=== PATIENT | male | born 1940 | race Asian ===

== ENCOUNTER 2017-08-26 21:55 | Inpatient (IN) | payer OTHER, MEDICAID, MEDICARE ==
[~2017-08-26] VITALS: Ht 160 cm; Wt 62.6 kg
[~2017-08-26 21:55] MED LIST: ASPI81 PO; CADU10TA2 PO
[2017-08-26 21:58] VITALS: BP 191/88; PULSE 135; RESP 20; TEMP 98.3; O2SAT 97
[2017-08-27] VITALS (7 sets, daily range): BP systolic 114–146; BP diastolic 62–73; PULSE 64–86; RESP 17–21; TEMP 97.9–98.2; O2SAT 97–100
[2017-08-27 00:37] LABS: AUTOMATED NEUTROPHIL # 10.7 TH/MM3 (1.8-7.7); BASOPHIL % 0.3 % (0.0-2.0); EOSINOPHIL % 0.1 % (0.0-4.0); HEMATOCRIT 35.8 % (39.0-51.0); HEMO FLAGS DIFF FINAL; LYMPH % 8.8 % (9.0-44.0); LYMPHOCYTE # 1.1 TH/MM3 (1.0-4.8); MEAN CORPUSCULAR HEMOGLOBIN 27.6 PG (27.0-34.0); MEAN CORPUSCULAR HGB CONC 32.5 % (32.0-36.0); MONO % 5.2 % (0.0-8.0); NEUT % 85.6 % (16.0-70.0); PLATELET COUNT 201 TH/MM3 (150-450); RED BLOOD COUNT 4.21 MIL/MM3 (4.50-5.90); RED CELL DISTRIBUTION WIDTH 14.2 % (11.6-17.2); WHITE BLOOD COUNT 12.5 TH/MM3 (4.0-11.0)
[2017-08-27 00:48] LABS: APTT (PATIENT) 26.2 SEC (24.3-30.1); PROTHROMBIN TIME - PATIENT 10.5 SEC (9.8-11.6)
[2017-08-27 01:00] LABS: ALT (GPT) 22 U/L (12-78); ANION GAP 9 MEQ/L (5-15); AST (GOT) 26 U/L (15-37); BLOOD UREA NITROGEN 34 MG/DL (7-18); CHLORIDE 100 MEQ/L (98-107); GLOMERULAR FILTRATION RATE 35 ML/MIN (>89); POTASSIUM 4.2 MEQ/L (3.5-5.1); SODIUM (NA) 131 MEQ/L (136-145)
[2017-08-27] MEDS ORDERED: LIDOCAINE 2% JELLY 30 ML TUBE TOPICAL ONE (01:00)
[2017-08-27 01:03] LABS: ALKALINE PHOSPHATASE 100 U/L (45-117); TOTAL BILIRUBIN ADULT 0.6 MG/DL (0.2-1.0)
[2017-08-27 01:39] LABS: BLOOD, URINE LARGE (NEG); COMMENT (UR) CULTURE INDICATED; CULTURE IF INDICATED CULTURE INDICATED; GLUCOSE,URINE TRACE mg/dL (NEG); KETONE, URINE 10 mg/dL (NEG); NITRITE,URINE POS (NEG); PH, URINE 7.5 (5.0-8.5); URINE COLOR DARK-RED (YELLW/STRAW)
--- NOTE | 2017-08-27 02:04 | PD ---
HPI Chief Complaint: Abdominal Pain Time Seen by Provider: 00:42 Travel History International Travel<30 days: No Contact w/Intl Traveler<30days: No Traveled to known affect area: No History of Present Illness HPI 77-year-old male complains of low abdominal discomfort and hematuria. Patient has history of prostate cancer for the past 6 months and has been seen by Dr. Shields, urologist. Patient has been receiving hormone injection. Patient started having cramping pain on the lower abdomen and hematuria since this morning. Patient states the pain and mild cramping pain localized to lower abdomen. Patient denies any pain radiation. Patient denies any fever chills. Patient denies any back pain. PFSH Past Medical History Cancer: No Cardiovascular Problems: Yes High Cholesterol: Yes Diabetes: No Endocrine: No Glaucoma: No Genitourinary: No Hepatitis: No Hiatal Hernia: No Hypertension: Yes Immune Disorder: No Musculoskeletal: No Neurologic: No Psychiatric: No Reproductive: No Respiratory: No Thyroid Disease: No Past Surgical History Pacemaker: No Social History Alcohol Use: No Tobacco Use: No Allergies-Medications (Allergen,Severity, Reaction): Coded Allergies: No Known Allergies (Verified , 08/26/17) Reported Meds & Prescriptions Reported Meds & Active Scripts Active Reported Aspirin 81 Mg Tab 81 Mg PO DAILY [place] 10/20 (Amlodipine/Atorvastatin) 10 Mg/20 Mg Tab 1 Tab PO DAILY Review of Systems General / Constitutional: No: Fever Eyes: No: Visual changes HENT: No: Headaches Cardiovascular: No: Chest Pain or Discomfort Respiratory: No: Shortness of Breath Gastrointestinal: Positive: Abdominal Pain Genitourinary: Positive: Hematuria, No: Dysuria Musculoskeletal: No: Pain Skin: No Rash Neurologic: No: Weakness Psychiatric: No: Depression Endocrine: No: Polydipsia Hematologic/Lymphatic: No: Easy Bruising Physical Exam Narrative GENERAL: Well-nourished, well-developed patient. SKIN: Focused skin assessment warm/dry. HEAD: Normocephalic. EYES: No scleral icterus. No injection or drainage. NECK: Supple, trachea midline. No JVD or lymphadenopathy. CARDIOVASCULAR: Regular rate and rhythm without murmurs, gallops, or rubs. RESPIRATORY: Breath sounds equal bilaterally. No accessory muscle use. GASTROINTESTINAL: Abdomen soft. Patient has mild distention lower abdomen. The bladder is distended to the umbilicus level. Mild tenderness on palpation lower abdomen. No rebound tenderness. MUSCULOSKELETAL: No cyanosis, or edema. BACK: Nontender without obvious deformity. No CVA tenderness. exam: Patient has small amount of blood per meatus. No tenderness on palpation of the testicle. Data Data Last Documented VS Vital Signs Date Time Temp Pulse Resp B/P (MAP) Pulse Ox O2 Delivery O2 Flow Rate FiO2 08/27/17 03:40 80 17 120/63 (82) 100 Room Air 08/26/17 21:58 98.3 Orders Orders Basic Metabolic Panel (Bmp) (08/27/17 00:10) Complete Blood Count With Diff (08/27/17 00:10) Comprehensive Metabolic Panel (08/27/17 00:10) Lipase (08/27/17 00:10) Lactic Acid (08/27/17 00:10) Prothrombin Time / Inr (Pt) (08/27/17 00:10) Act Partial Throm Time (Ptt) (08/27/17 00:10) Urinalysis - C+S If Indicated (08/27/17 00:10) Iv Access Insert/Monitor (08/27/17 00:10) Ecg Monitoring (08/27/17 00:10) Oximetry (08/27/17 00:10) Urinary Catheter Insert/Apply (08/27/17 00:51) Lidocaine 2% Jelly (Xylocaine 2% Jelly) (08/27/17 01:00) Type And Screen (08/27/17 01:15) Ct Abd/Pel W Iv Contrast(Rout) (08/27/17 01:15) Urine Culture (08/27/17 01:08) Iodixanol 320 Inj (Rad Ct) (Visipaque 32 (08/27/17 02:18) Labs Laboratory Tests Test 08/27/17 00:24 08/27/17 01:08 White Blood Count 12.5 TH/MM3 Red Blood Count 4.21 MIL/MM3 Hemoglobin 11.6 GM/DL Hematocrit 35.8 % Mean Corpuscular Volume 85.0 FL Mean Corpuscular Hemoglobin 27.6 PG Mean Corpuscular Hemoglobin Concent 32.5 % Red Cell Distribution Width 14.2 % Platelet Count 201 TH/MM3 Mean Platelet Volume 7.0 FL Neutrophils (%) (Auto) 85.6 % Lymphocytes (%) (Auto) 8.8 % Monocytes (%) (Auto) 5.2 % Eosinophils (%) (Auto) 0.1 % Basophils (%) (Auto) 0.3 % Neutrophils # (Auto) 10.7 TH/MM3 Lymphocytes # (Auto) 1.1 TH/MM3 Monocytes # (Auto) 0.6 TH/MM3 Eosinophils # (Auto) 0.0 TH/MM3 Basophils # (Auto) 0.0 TH/MM3 CBC Comment DIFF FINAL Differential Comment Prothrombin Time 10.5 SEC Prothromb Time International Ratio 1.0 RATIO Activated Partial Thromboplast Time 26.2 SEC Blood Urea Nitrogen 34 MG/DL Creatinine 1.88 MG/DL Random Glucose 180 MG/DL Total Protein 7.9 GM/DL Albumin 4.1 GM/DL Calcium Level 9.1 MG/DL Alkaline Phosphatase 100 U/L Aspartate Amino Transf (AST/SGOT) 26 U/L Alanine Aminotransferase (ALT/SGPT) 22 U/L Total Bilirubin 0.6 MG/DL Sodium Level 131 MEQ/L Potassium Level 4.2 MEQ/L Chloride Level 100 MEQ/L Carbon Dioxide Level 22.0 MEQ/L Anion Gap 9 MEQ/L Estimat Glomerular Filtration Rate 35 ML/MIN Lactic Acid Level 1.7 mmol/L Lipase 263 U/L Urine Color DARK-RED Urine Turbidity CLOUDY Urine pH 7.5 Urine Specific [place] 1.030 Urine Protein 300 mg/dL Urine Glucose (UA) TRACE mg/dL Urine Ketones 10 mg/dL Urine Occult Blood LARGE Urine Nitrite POS Urine Bilirubin NEG Urine Urobilinogen 8.0 MG/DL Urine Leukocyte Esterase TRACE Urine RBC /hpf Urine WBC /hpf Microscopic Urinalysis Comment CULTURE INDICATED MDM Medical Decision Making Medical Screen Exam Complete: Yes Emergency Medical Condition: Yes Interpretation(s) Last Impressions Abdomen/Pelvis CT 08/27/17 0115 Signed Impressions: Service Date/Time: August 01:56 - CONCLUSION: Bladder filled with likely hematoma. Nonspecific soft tissue nodules in the retroperitoneum Incompletely seen sclerotic process involving the proximal right femoral shaft. Previously treated aortoiliac aneurysm. Tyrone Ni MD 3:41 AM. CBC WBC 12.5. Hemoglobin 11.6 hematocrit 35.8. 85 neutrophil. Sodium 131. BUN 34. Creatinine 1.88. UA gross blood. Differential Diagnosis Differential diagnosis including hematuria, UTI. Narrative Course 77-year-old male with lower abdominal discomfort and hematuria. History of prostate cancer on hormone therapy. Banks catheter inserted. Diagnosis Primary Impression: Gross hematuria Additional Impression: History of prostate cancer Admitting Information Admitting Physician Requests: Observation Owen Nevarez MD Aug 27, 2017 02:04
[2017-08-27] MEDS ORDERED: IODIXANOL 320 MG/ML 10 ML VIAL (for Rad CT) IVCONTRAST ONE (02:18)
--- NOTE | 2017-08-27 02:36 | RADRPT ---
EXAM DATE/TIME: 08/27/2017 01:56 [facility] COMPARISON: No previous studies available for comparison. INDICATIONS : Lower abdominal pain and hematuria. IV CONTRAST: 50 cc Visipaque (iodixanol) IV ORAL CONTRAST: No oral contrast ingested. RADIATION DOSE: 4.72 CTDIvol (mGy) MEDICAL HISTORY : Hypertension. Aneurysm, abdominal. Carcinoma, prostate. SURGICAL HISTORY : Abdominal aortic aneurysm repair. ENCOUNTER: Initial ACUITY: 1 day PAIN SCALE: 5/10 LOCATION: Bilateral lower quadrant TECHNIQUE: Volumetric scanning of the abdomen and pelvis was performed. Using automated exposure control and ad justment of the mA and/or kV according to patient size, radiation dose was kept as low as reasonably achievable to obtain optimal diagnostic quality images. DICOM format image data is available electro nically for review and comparison. FINDINGS: LOWER LUNGS: The visualized lower lungs are clear. LIVER: Homogeneous density without lesion. There is no dilation of the biliary tree. No calcified gall[place] es. SPLEEN: Normal size without lesion. PANCREAS: Within normal limits. KIDNEYS: Bilateral renal cysts. No evidence of stone or hydronephrosis. ADRENAL GLANDS: Within normal limits. VASCULAR: Previous endovascular aortoiliac aneurysm repair. Coil embolization of the right hypogastric with ext ension of the endograft into the proximal right external iliac artery. Aortic aneurysm sac diameter m easures 4.3 cm. 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 BOWEL/MESENTERY: Moderate size hiatal hernia. No abnormal dilatation of bowel. No definite focal inflammatory changes. ABDOMINAL WALL: Within normal limits. RETROPERITONEUM: Soft tissue density nodules in the retroperitoneum, most conspicuously adjacent to the right kidney m easuring roughly a centimeter in size. BLADDER: Banks catheter present. Bladder contents are hyperdense, likely representing hematoma. REPRODUCTIVE: Within normal limits. INGUINAL: There is no lymphadenopathy or hernia. MUSCULOSKELETAL: Incompletely seen sclerotic process involving the proximal aspect of the right femoral shaft. CONCLUSION: Bladder filled with likely hematoma. Nonspecific soft tissue nodules in the retroperitoneum Incompletely seen sclerotic process involving the proximal right femoral shaft. Previously treated aortoiliac aneurysm. Tyrone Ni MD on August 27, 2017 at 2:26 Board Certified Radiologist. This report was verified electronically.
[2017-08-27] MEDS ORDERED: NALOXONE HCL 0.4 MG/ML AMP IV PUSH PRN ×2 (04:00→10:30)
[2017-08-27] MEDS ORDERED: SODIUM CHLORIDE 0.9% FLUSH 10 ML FLUSH IV FLUSH PRN (04:00)
--- NOTE | 2017-08-27 05:18 | HHI.HP ---
[facility] [place] [facility] Cristy Carlisle MD Admission Diagnosis gross hematuria. History of prostate cancer. Diagnoses: Chief Complaint: blood in urine Travel History International Travel<30 Days: No Contact w/Intl Traveler <30 Da: No Traveled to Known Affected Are: No History of Present Illness Written by Leann Callahan, acting as scribe for [George] on 08/27/17 at 05:14. 77 y/o male with a history of HTN, prostate cancer presented to the ED with complaints of blood in the urine. He states the blood in his urine started yesterday morning with associated pain in his bladder. He describes the pain in his bladder as pressure-like. He denies any chest pain, shortness of breath , fever or chills. Banks was inserted and is draining bright red blood with clots. Urologist: Dr. Shields Review of Systems Except as stated in HPI: all other systems reviewed are Neg Past Family Social History Past Medical History HTN Prostate cancer, with Lupron injections once a month Past Surgical History AAA repair 2009 Reported Medications Reported Meds & Active Scripts Active Allergies: Coded Allergies: No Known Allergies (Verified , 08/26/17) Active Ordered Medications Current Medications Medications (Trade) Dose Ordered Sig/Anton Route Start Time Stop Time Status Last Admin Sodium Chloride 1,000 ml @ 100 mls/hr Q10H IV 08/27/17 03:47 (NS Flush) 2 ml UNSCH PRN IV FLUSH 08/27/17 04:00 (NS Flush) 2 ml BID IV FLUSH 08/27/17 09:00 (Narcan Inj) 0.4 mg UNSCH PRN IV PUSH 08/27/17 04:00 Ciprofloxacin/ Dextrose 200 ml @ 200 mls/hr Q12H IV 08/27/17 05:00 Family History Mom: HTN Dad: HTN Social History Tobacco use: Denies Alcohol use: Denies Physical Exam Vital Signs Vital Signs Date Time Temp Pulse Resp B/P (MAP) Pulse Ox O2 Delivery O2 Flow Rate FiO2 08/27/17 05:06 98.2 83 17 146/73 (97) 98 08/27/17 03:40 80 17 120/63 (82) 100 Room Air 08/27/17 01:30 86 17 114/67 (83) 97 Room Air 08/26/17 21:58 98.3 135 20 191/88 (122) 97 Room Air Physical Exam GENERAL: This is a well-nourished, well-developed patient, in no apparent distress. SKIN: No rashes, ecchymoses or lesions. Cool and dry. HEAD: Atraumatic. Normocephalic. EYES: Pupils equal round and reactive. ENT: Nose without bleeding, purulent drainage or septal hematoma. Airway patent. NECK: Trachea midline. No JVD CARDIOVASCULAR: Regular rate and rhythm without murmurs, gallops, or rubs. RESPIRATORY: Clear to auscultation. Breath sounds equal bilaterally. No wheezes , rales, or rhonchi. GASTROINTESTINAL: Abdomen soft, non-tender, nondistended. Bladder tenderness MUSCULOSKELETAL: Extremities without clubbing, cyanosis, or edema. No joint tenderness, effusion, or edema noted. No calf tenderness. NEUROLOGICAL: Awake and alert. Motor and sensory grossly within normal limits. Normal speech. Laboratory Laboratory Tests Test 08/27/17 00:24 08/27/17 01:08 White Blood Count 12.5 Red Blood Count 4.21 Hemoglobin 11.6 Hematocrit 35.8 Mean Corpuscular Volume 85.0 Mean Corpuscular Hemoglobin 27.6 Mean Corpuscular Hemoglobin Concent 32.5 Red Cell Distribution Width 14.2 Platelet Count 201 Mean Platelet Volume 7.0 Neutrophils (%) (Auto) 85.6 Lymphocytes (%) (Auto) 8.8 Monocytes (%) (Auto) 5.2 Eosinophils (%) (Auto) 0.1 Basophils (%) (Auto) 0.3 Neutrophils # (Auto) 10.7 Lymphocytes # (Auto) 1.1 Monocytes # (Auto) 0.6 Eosinophils # (Auto) 0.0 Basophils # (Auto) 0.0 CBC Comment DIFF FINAL Differential Comment Prothrombin Time 10.5 Prothromb Time International Ratio 1.0 Activated Partial Thromboplast Time 26.2 Blood Urea Nitrogen 34 Creatinine 1.88 Random Glucose 180 Total Protein 7.9 Albumin 4.1 Calcium Level 9.1 Alkaline Phosphatase 100 Aspartate Amino Transf (AST/SGOT) 26 Alanine Aminotransferase (ALT/SGPT) 22 Total Bilirubin 0.6 Sodium Level 131 Potassium Level 4.2 Chloride Level 100 Carbon Dioxide Level 22.0 Anion Gap 9 Estimat Glomerular Filtration Rate 35 Lactic Acid Level 1.7 Lipase 263 Urine Color DARK-RED Urine Turbidity CLOUDY Urine pH 7.5 Urine Specific [place] 1.030 Urine Protein 300 Urine Glucose (UA) TRACE Urine Ketones 10 Urine Occult Blood LARGE Urine Nitrite POS Urine Bilirubin NEG Urine Urobilinogen 8.0 Urine Leukocyte Esterase TRACE Urine RBC Urine WBC Microscopic Urinalysis Comment CULTURE INDICATED Date/Time Source Procedure Growth Status 08/27/17 01:08 Urine Random Urine Urine Culture Pending Received Result Diagram: 08/27/17 0024 08/27/17 0024 Imaging Last Impressions Abdomen/Pelvis CT 08/27/17 0115 Signed Impressions: Service Date/Time: August 01:56 - CONCLUSION: Bladder filled with likely hematoma. Nonspecific soft tissue nodules in the retroperitoneum Incompletely seen sclerotic process involving the proximal right femoral shaft. Previously treated aortoiliac aneurysm. Tyrone Ni MD Course Caprini VTE Risk Assessment Caprini VTE Risk Assessment: Mod/High Risk (score >= 2) VTE Pharm Contraindication: Active bleeding Caprini Risk Assessment Model Point Value = 1 Point Value = 2 Point Value = 3 Point Value = 5 Age 41-60 Minor surgery BMI > 25 kg/m2 Swollen legs Varicose veins or History of unexplained or recurrent spontaneous Oral contraceptives or hormone replacement Sepsis (< 1 month) Serious lung disease, including pneumonia (< 1 month) Abnormal pulmonary function Acute myocardial infarction Congestive heart failure (< 1 month) History of inflammatory bowel disease Medical patient at bed rest Age 61-74 Arthroscopic surgery Major open surgery (> 45 min) Laparoscopic surgery (> 45 min) Malignancy Confined to bed (> 72 hours) Immobilizing plaster cast Central venous access Age >= 75 History of VTE Family history of VTE Factor V Leiden Prothrombin [id number] Lupus anticoagulant Anticardiolipin antibodies Elevated serum homocysteine Heparin-induced thrombocytopenia Other congenital or acquired thrombophilia Stroke (< 1 month) Elective arthroplasty Hip, pelvis, or leg fracture Acute spinal cord injury (< 1 month) Prophylaxis Regimen Total Risk Factor Score Risk Level Prophylaxis Regimen 0-1 Low Early ambulation 2 Moderate Order ONE of the following: *Sequential Compression Device (SCD) *Heparin 5000 units SQ BID 3-4 Higher Order ONE of the following medications: *Heparin 5000 units SQ TID *Enoxaparin/Lovenox 40 mg SQ daily (WT < 150 kg, CrCl > 30 mL/min) *Enoxaparin/Lovenox 30 mg SQ daily (WT < 150 kg, CrCl > 10-29 mL/min) *Enoxaparin/Lovenox 30 mg SQ BID (WT < 150 kg, CrCl > 30 mL/min) AND/OR *Sequential Compression Device (SCD) 5 or more Highest Order ONE of the following medications: *Heparin 5000 units SQ TID (Preferred with Epidurals) *Enoxaparin/Lovenox 40 mg SQ daily (WT < 150 kg, CrCl > 30 mL/min) *Enoxaparin/Lovenox 30 mg SQ daily (WT < 150 kg, CrCl > 10-29 mL/min) *Enoxaparin/Lovenox 30 mg SQ BID (WT < 150 kg, CrCl > 30 mL/min) AND *Sequential Compression Device (SCD) Assessment and Plan Problem List: (1) Gross hematuria ICD Code: R31.0 - Gross hematuria Status: Acute (2) History of prostate cancer ICD Code: Z85.46 - Personal history of malignant neoplasm of prostate Status: Acute Assessment and Plan 77 y/o male with a history of HTN, prostate cancer presented to the ED with complaints of blood in the urine. Gross hematuria, with UTI and leukocytosis UA shows trace leukocyte esterase with positive nitrates and large amount of blood WBCs 12.[address] reviewed and shows bladder filled with likely a hematoma -Continue Banks catheter, flush as needed for clots -Consult urology -Ciprofloxacin IV -Urine culture pending Hypertension, chronic -We'll order home medications when verified by RN DVT prophylaxis: SCDs, chemical discipline Discussed Condition With Patient and RN Physician Certification 2 Midnight Certification Type: Admission for Inpatient Services Order for Inpatient Services The services are ordered in accordance with Medicare regulations or non- Medicare payer requirements, as applicable. In the case of services not specified as inpatient-only, they are appropriately provided as inpatient services in accordance with the 2-midnight benchmark. Estimated LOS (days): 2 days is the estimated time the patient will need to remain in the hospital, assuming treatment plan goals are met and no additional complications. Post-Hospital Plan: Home Leann Callahan Aug 27, 2017 05:18
[2017-08-27] MEDS: CIPROFLOXACIN 400 MG PREMIX 200 ML IV SCH (08:47)
[2017-08-27] MEDS: SODIUM CHLORIDE 0.9% FLUSH 10 ML FLUSH IV FLUSH SCH ×2 (08:47→20:32)
[2017-08-27] MEDS: SODIUM CHLOR 0.9% 1000 ML INJ 1,000 ML IV SCH ×2 (08:47→20:31)
[2017-08-27] MEDS ORDERED: ACETAMINOPHEN/HYDROcodone 325 MG/5 MG TAB PO PRN (10:30)
[2017-08-27] MEDS ORDERED: ACETAMINOPHEN/HYDROcodone 325 MG/7.5 MG TAB PO PRN (10:30)
[2017-08-27] MEDS ORDERED: ACETAMINOPHEN 325 MG TAB PO PRN (10:30)
--- NOTE | 2017-08-27 18:17 | PD.CONS ---
HPI Service Urology Consult Requested By Reason for Consult Hematuria Primary Care Physician Cristy Carlisle MD Diagnosis: (1) Gross hematuria ICD Code: R31.0 - Gross hematuria (2) History of prostate cancer ICD Code: Z85.46 - Personal history of malignant neoplasm of prostate History of Present Illness 77yo male with history of metastatic prostate cancer followed by Dr. Shields currently undergoing hormone therapy for the prostate cancer now seen in consultation for gross hematuria and retention. Patient reports that he began to have gross hematuria yesterday. This progressively worsened and was not able to void last night, at which point he presented to the ED. A catheter has been placed and irrigated with significant clots removed. Patient underwent CT scan which identified likely large bladder clot within the lumen of the bladder. Currently his henriquez catheter is draining adequately. No pain at this time. No fevers. Review of Systems ROS Limitations: Clinical Condition Constitutional: DENIES: Fever Endocrine: DENIES: Heat/cold intolerance Eyes: DENIES: Blurred vision Ears, nose, mouth, throat: DENIES: Hearing loss Respiratory: DENIES: Cough Cardiovascular: DENIES: Chest pain Gastrointestinal: COMPLAINS OF: Abdominal pain Genitourinary: COMPLAINS OF: Hematuria Musculoskeletal: COMPLAINS OF: Joint pain Integumentary: DENIES: Rash Hematologic/lymphatic: DENIES: Bruising Neurologic: DENIES: Abnormal gait, Headache Psychiatric: DENIES: Anxiety Except as stated in HPI: all other systems reviewed are Neg Past Family Social History Past Medical History HTN Prostate cancer, with Lupron injections once a month Past Surgical History AAA repair 2009 Reported Medications Reported Meds & Active Scripts Active Allergies: Coded Allergies: No Known Allergies (Verified , 08/26/17) Active Ordered Medications Current Medications Medications (Trade) Dose Ordered Sig/Anton Route Start Time Stop Time Status Last Admin Sodium Chloride 1,000 ml @ 100 mls/hr Q10H IV 08/27/17 03:47 08/27/17 08:47 (NS Flush) 2 ml UNSCH PRN IV FLUSH 08/27/17 04:00 (NS Flush) 2 ml BID IV FLUSH 08/27/17 09:00 (Narcan Inj) 0.4 mg UNSCH PRN IV PUSH 08/27/17 04:00 Ciprofloxacin/ Dextrose 200 ml @ 200 mls/hr Q12H IV 08/27/17 05:00 08/27/17 08:47 (Pneumovax-23 Inj) 25 mcg ONCE ONCE IM 08/28/17 10:00 08/28/17 10:01 (Flu (Quadrivalent) Vaccine Inj) 0.5 ml ONCE ONCE IM 08/28/17 10:00 08/28/17 10:01 (Tylenol) 650 mg Q6H PRN PO 08/27/17 10:30 ([place] 5-325 Mg) 1 tab Q4H PRN PO 08/27/17 10:30 ([place] 7.5-325 Mg) 1 tab Q4H PRN PO 08/27/17 10:30 08/27/17 12:05 Family History Mom: HTN Dad: HTN Social History Tobacco use: Denies Alcohol use: Denies Physical Exam Vital Signs Date Time Temp Pulse Resp B/P (MAP) Pulse Ox O2 Delivery O2 Flow Rate FiO2 08/27/17 15:54 97.9 64 20 129/65 (86) 98 08/27/17 13:14 20 08/27/17 11:40 98.0 71 21 118/62 (80) 98 08/27/17 07:21 98.0 74 20 120/65 (83) 98 08/27/17 05:06 98.2 83 17 146/73 (97) 98 08/27/17 03:40 80 17 120/63 (82) 100 Room Air 08/27/17 01:30 86 17 114/67 (83) 97 Room Air 08/26/17 21:58 98.3 135 20 191/88 (122) 97 Room Air Physical Exam GENERAL: This is a well-nourished, well-developed patient, in no apparent distress. SKIN: No rashes, ecchymoses or lesions. Cool and dry. HEAD: Atraumatic. Normocephalic. EYES: Extraocular motions intact. No scleral icterus. No injection or drainage. ENT: Nose without bleeding, purulent drainage. Airway patent. NECK: Trachea midline. No JVD or lymphadenopathy. CARDIOVASCULAR: Normal pulses RESPIRATORY: Nonlabored, equal chest rise GASTROINTESTINAL: Abdomen soft, non-tender, nondistended GENITOURINARY: 20Fr henriquez in place, light red urine with CBI running MUSCULOSKELETAL: Extremities without clubbing, cyanosis, or edema.. NEUROLOGICAL: Awake and alert. Motor and sensory grossly within normal limits. Normal speech. Lab results reviewed: Yes Laboratory Tests Test 08/27/17 00:24 08/27/17 01:08 White Blood Count 12.5 Red Blood Count 4.21 Hemoglobin 11.6 Hematocrit 35.8 Mean Corpuscular Volume 85.0 Mean Corpuscular Hemoglobin 27.6 Mean Corpuscular Hemoglobin Concent 32.5 Red Cell Distribution Width 14.2 Platelet Count 201 Mean Platelet Volume 7.0 Neutrophils (%) (Auto) 85.6 Lymphocytes (%) (Auto) 8.8 Monocytes (%) (Auto) 5.2 Eosinophils (%) (Auto) 0.1 Basophils (%) (Auto) 0.3 Neutrophils # (Auto) 10.7 Lymphocytes # (Auto) 1.1 Monocytes # (Auto) 0.6 Eosinophils # (Auto) 0.0 Basophils # (Auto) 0.0 CBC Comment DIFF FINAL Differential Comment Prothrombin Time 10.5 Prothromb Time International Ratio 1.0 Activated Partial Thromboplast Time 26.2 Blood Urea Nitrogen 34 Creatinine 1.88 Random Glucose 180 Total Protein 7.9 Albumin 4.1 Calcium Level 9.1 Alkaline Phosphatase 100 Aspartate Amino Transf (AST/SGOT) 26 Alanine Aminotransferase (ALT/SGPT) 22 Total Bilirubin 0.6 Sodium Level 131 Potassium Level 4.2 Chloride Level 100 Carbon Dioxide Level 22.0 Anion Gap 9 Estimat Glomerular Filtration Rate 35 Lactic Acid Level 1.7 Lipase 263 Urine Color DARK-RED Urine Turbidity CLOUDY Urine pH 7.5 Urine Specific [place] 1.030 Urine Protein 300 Urine Glucose (UA) TRACE Urine Ketones 10 Urine Occult Blood LARGE Urine Nitrite POS Urine Bilirubin NEG Urine Urobilinogen 8.0 Urine Leukocyte Esterase TRACE Urine RBC Urine WBC Microscopic Urinalysis Comment CULTURE INDICATED Date/Time Source Procedure Growth Status 08/27/17 01:08 Urine Random Urine Urine Culture Pending Received Result Diagram: 08/27/17 0024 08/27/17 0024 Personally reviewed images: Yes Imaging Last Impressions Abdomen/Pelvis CT 08/27/17 0115 Signed Impressions: Service Date/Time: August 01:56 - CONCLUSION: Bladder filled with likely hematoma. Nonspecific soft tissue nodules in the retroperitoneum Incompletely seen sclerotic process involving the proximal right femoral shaft. Previously treated aortoiliac aneurysm. Tyrone Ni MD Assessment and Plan Problem List: (1) History of prostate cancer ICD Code: Z85.46 - Personal history of malignant neoplasm of prostate Status: Acute (2) Gross hematuria ICD Code: R31.0 - Gross hematuria Status: Acute Assessment and Plan -Difficulty in irrigating 20Fr 3way catheter -Henriquez catheter changed at bedside to 24Fr -Hand irrigation with 2L of normal saline. Significant clot burden removed from bladder, however urine remained light pink/red -Review of CT scan shows large bladder clot encompassing majority of bladder -Patient would benefit from cystoscopy with clot evacuation -Currently patient is comfortable, draining well with CBI, light pink -Plan for OR tomorrow with Cystoscopy, clot evacuation and fulguration of bleeders -NPO at midnight Oli Rod MD Aug 27, 2017 18:17
[2017-08-28] VITALS: BP 138/72; PULSE 68; RESP 17; TEMP 97.2; O2SAT 97
[2017-08-28] MEDS ORDERED: POVIDONE IODINE 5% (ANTISEPSIS KIT) 4 APPLICATIONS EACH NARE PRN (03:45)
[2017-08-28] MEDS ORDERED: CHLORHEXIDINE GLUCONATE 2 % 1 PACK (2 CLOTHS) TOPICAL PRN (03:45)
[2017-08-28] MEDS ORDERED: METOPROLOL TARTRATE 25 MG TAB PO PRN (03:45)
[2017-08-28] MEDS ORDERED: LACTATED RINGER'S 1000 ML IV PRN (03:45)
[2017-08-28 04:00] VITALS: BP 134/63; PULSE 68; RESP 17; TEMP 99.3; O2SAT 97
[2017-08-28] MEDS: CIPROFLOXACIN 400 MG PREMIX 200 ML IV SCH ×2 (04:17→18:21)
[2017-08-28] MEDS: SODIUM CHLOR 0.9% 1000 ML INJ 1,000 ML IV SCH ×2 (06:54→18:31)
[2017-08-28] MEDS: SODIUM CHLORIDE 0.9% FLUSH 10 ML FLUSH IV FLUSH SCH ×2 (06:54→21:00)
[2017-08-28 07:44] LABS: AUTOMATED NEUTROPHIL # 5.9 TH/MM3 (1.8-7.7); BASOPHIL % 0.4 % (0.0-2.0); EOSINOPHIL # 0.1 TH/MM3 (0-0.4); EOSINOPHIL % 1.7 % (0.0-4.0); HEMATOCRIT 27.2 % (39.0-51.0); HEMO FLAGS DIFF FINAL; LYMPH % 13.1 % (9.0-44.0); MEAN CORPUSCULAR HEMOGLOBIN 28.4 PG (27.0-34.0); MEAN CORPUSCULAR HGB CONC 33.4 % (32.0-36.0); MONO % 10.4 % (0.0-8.0); NEUT % 74.4 % (16.0-70.0); PLATELET COUNT 143 TH/MM3 (150-450); RED CELL DISTRIBUTION WIDTH 14.2 % (11.6-17.2)
[2017-08-28 08:46] LABS: BICARBONATE 25.2 MEQ/L (21.0-32.0); POTASSIUM 3.8 MEQ/L (3.5-5.1)
--- NOTE | 2017-08-28 08:56 | EKG ---
Date Performed: 08/28/2017 Time Performed: 05:42:52 PTAGE: 77 years EKG: Sinus rhythm with occasional PAC Right bundle branch block Possible inferior infarct - age undetermined Abnormal ECG PREVIOUS TRACING : 12/18/2010 11.15 No significant change from previous tracing noted. DOCTOR: Paramjit Martinez Interpretating Date/Time 08/28/2017 08:55:13
--- NOTE | 2017-08-28 08:56 | HHI.PR ---
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 Successful irrigation and removal of all clots Resection of tumor completed Continue CBI Will follow Objective Vital Signs Vital Signs Date Time Temp Pulse Resp B/P (MAP) Pulse Ox O2 Delivery O2 Flow Rate FiO2 08/28/17 04:00 99.3 68 17 134/63 (86) 97 08/28/17 00:00 97.2 68 17 138/72 (94) 97 08/27/17 20:00 70 08/27/17 15:54 97.9 64 20 129/65 (86) 98 08/27/17 13:14 20 08/27/17 11:40 98.0 71 21 118/62 (80) 98 Intake & Output 08/28/17 08/28/17 07:00 19:00 Intake Total 200 ml Output Total 1475 ml Balance -1275 ml Intake Oral 0 ml IV Total 200 ml Output Urine Total 1475 ml Result Diagram: 08/28/1762208/28/17 0623 Medications and IVs Current Medications Medications (Trade) Dose Ordered Sig/Anton Route Start Time Stop Time Status Last Admin Sodium Chloride 1,000 ml @ 100 mls/hr Q10H IV 08/27/17 03:47 08/27/17 20:31 (NS Flush) 2 ml UNSCH PRN IV FLUSH 08/27/17 04:00 (NS Flush) 2 ml BID IV FLUSH 08/27/17 09:00 08/27/17 20:32 (Narcan Inj) 0.4 mg UNSCH PRN IV PUSH 08/27/17 04:00 Ciprofloxacin/ Dextrose 200 ml @ 200 mls/hr Q12H IV 08/27/17 05:00 08/28/17 04:17 (Pneumovax-23 Inj) 25 mcg ONCE ONCE IM 08/28/17 10:00 08/28/17 10:01 (Flu (Quadrivalent) Vaccine Inj) 0.5 ml ONCE ONCE IM 08/28/17 10:00 08/28/17 10:01 (Tylenol) 650 mg Q6H PRN PO 08/27/17 10:30 ([place] 5-325 Mg) 1 tab Q4H PRN PO 08/27/17 10:30 ([place] 7.5-325 Mg) 1 tab Q4H PRN PO 08/27/17 10:30 08/27/17 12:05 Lactated Ringer's 1,000 ml @ 30 mls/hr Q24H PRN IV 08/28/17 03:45 08/31/17 03:44 (Betadine 5% Antisepsis Kit) 1 applic INSTRUMENT REPAIR SUPERVISOR PRN EACH NARE 08/28/17 03:45 08/31/17 03:44 (Chlorhexidine 2% Cloth) 3 pack INSTRUMENT REPAIR SUPERVISOR PRN TOPICAL 08/28/17 03:45 08/31/17 03:44 (Lopressor) 25 mg INSTRUMENT REPAIR SUPERVISOR PRN PO 08/28/17 03:45 08/31/17 03:44 Assessment and Plan Problem List: (1) History of prostate cancer ICD Code: Z85.46 - Personal history of malignant neoplasm of prostate Status: Acute (2) Gross hematuria ICD Code: R31.0 - Gross hematuria Status: Acute Oli Rod MD Aug 28, 2017 08:56
[2017-08-28] MEDS ORDERED: DO NOT ADM ANY ANTICOAGULANT DRUGS PRN (09:06)
[2017-08-28] MEDS ORDERED: *morphine SULFATE 8 MG/ML PERIprocedure ONLY ONE (09:28)
--- NOTE | 2017-08-28 09:31 | MP ---
cc: JAN MUNOZ MD DATE OF SURGERY: 08/28/2017 PREOPERATIVE DIAGNOSIS 1. Bladder tumor. 2. Hematuria with large clot burden, POSTOPERATIVE DIAGNOSIS 1. Bladder tumor. 2. Hematuria with large clot burden, SURGEON Jan Munoz. PROCEDURE PERFORMED 1. Cystoscopy. 2. Clot evacuation. 3. Fulguration of bleeders. 4. TURBT greater than 5 cm. PERTINENT FINDINGS 1. Large bladder tumor noted extending along the right lateral bladder wall, papillary in appearance. There was over 5 cm of tumor in the bladder. 2. Large clot within the bladder encompassing the majority of the bladder. This was coming from the bladder tumor noted on the right lateral bladder wall. This was successfully removed. HISTORY OF PRESENT ILLNESS Elmer Poole is a 77-year-old male with a history of prostate cancer who recently developed gross hematuria. He went into clot retention and had a catheter placed and irrigation. CT scan identified a large clot within the bladder and therefore he presents to the OR for cystoscopy and clot evacuation. PROCEDURE IN DETAIL After proper informed consent was obtained, the patient was brought to the operating room and laid supine on the operating table. Bilateral lower extremity SCDs were then placed. The patient was placed under general anesthesia. The patient was then placed in the lithotomy position, prepped and draped in the standard surgical fashion. After a proper timeout was completed, a rigid cystoscope was inserted through the urethra into the bladder. The urethral mucosa was within normal limits. Upon entering the bladder immediately noted was a large bladder clot encompassing the entirety of the bladder lumen. Bladder lumen was difficult to visualize. At this point the resectoscope was inserted and the bladder clot was resected and taken out in pieces. After removal of some of the clot it was then noted that the patient had a very large right lateral bladder wall tumor, papillary in appearance, extending from the right lateral bladder wall up into the anterior right bladder wall and posterior bladder. After removal of the clot resection was then carried out of this large bladder tumor down to the level of the muscle. After adequate removal of all bladder tumor, fulguration of all bleeders was completed. At this point hemostasis was achieved and therefore the scope was removed and a 24 Bulgarian ureteral catheter was inserted. CBI was resumed. The patient tolerated the procedure well with no complications. He was awoken and taken to the PACU in stable condition. DISPOSITION The patient is to return to his room with continuous bladder irrigation. We will try to wean this off over the next few days. Jason Angel/CARLY /8:57 AM /9:10 AM
[2017-08-28] MEDS ORDERED: PNEUMOCOCCAL POLYVALENT INJ 25 MCG/0.5 ML SYR IM ONE (10:00)
[2017-08-28] MEDS ORDERED: INFLUENZA VIRUS VACCINE (QUADRIVALENT) 0.5 ML SYR IM ONE (10:00)
[2017-08-28 12:00] VITALS: BP 164/75; PULSE 75; RESP 19; TEMP 98.7; O2SAT 97
[2017-08-28] MEDS ORDERED: ONDANSETRON HCL 4 MG/2 ML VIAL IV PUSH ONE (12:00)
[2017-08-28] MEDS ORDERED: PHENYLEPH/NS 1000 MCG/10 ML SYR IV ONE (12:00)
[2017-08-28] MEDS ORDERED: LIDOCAINE HCL 1% PF 5 ML AMPULE OTHER ONE (12:00)
[2017-08-28] MEDS ORDERED: GLYCOPYRROLATE 1 MG/5 ML SYRINGE IV PUSH ONE (12:00)
[2017-08-28] MEDS ORDERED: ROCURONIUM INJ 50 MG/5 ML SYRINGE IV PUSH ONE (12:00)
[2017-08-28] MEDS ORDERED: ceFAZolin INJ 1,000 MG VIAL IV ONE (12:00)
[2017-08-28] MEDS ORDERED: NEOSTIGMINE 3 MG/3 ML SYR IV ONE (12:00)
[2017-08-28] MEDS ORDERED: PROPOFOL 200 MG/20 ML AMP IV ONE (12:00)
[2017-08-28] MEDS ORDERED: ePHEDrine/NS 25 MG/5 ML SYR IV ONE (12:00)
[2017-08-28] MEDS ORDERED: LACTATED RINGER'S 1000 ML INJ 1,000 ML IV ONE (12:00)
[2017-08-28] MEDS ORDERED: ENALAPRILAT 1.25 MG/ML VIAL IV PUSH PRN (14:30)
--- NOTE | 2017-08-28 14:33 | HHI.PR ---
Subjective Remarks Patient seen this afternoon around 2 PM. Says he is feeling better than yesterday. Reports pain is controlled. Objective Vital Signs Date Time Temp Pulse Resp B/P (MAP) Pulse Ox O2 Delivery O2 Flow Rate FiO2 08/28/17 12:00 98.7 75 19 164/75 (104) 97 08/28/17 10:00 66 16 131/65 (87) 95 Room Air 08/28/17 09:45 62 16 134/61 (85) 96 Room Air 08/28/17 09:30 72 16 133/63 (86) 100 08/28/17 09:15 70 16 155/66 (95) 100 Nasal Cannula 2 08/28/17 09:06 98.3 72 16 153/72 (99) 100 Nasal Cannula 2 08/28/17 04:00 99.3 68 17 134/63 (86) 97 08/28/17 00:00 97.2 68 17 138/72 (94) 97 08/27/17 20:00 70 08/27/17 15:54 97.9 64 20 129/65 (86) 98 I/O 08/27/17 08/27/17 08/27/17 08/28/17 08/28/17 08/28/17 07:00 15:00 23:00 07:00 15:00 23:00 Intake Total 200 ml 200 ml 1000 ml Output Total 1500 ml 1475 ml 1700 ml Balance -1500 ml 200 ml -1275 ml -700 ml Intake Oral 0 ml IV Total 200 ml 200 ml 1000 ml Output Urine Total 1500 ml 1475 ml 1700 ml Bladder Scan Volume Amount 999 ml Result Diagram: 08/28/1762208/28/17622 Objective Remarks GENERAL: Patient sitting up in bed. Sleeping, wakes up for exam. SKIN: Warm and dry. HEAD: Normocephalic. EYES: No scleral icterus. No injection or drainage. NECK: Supple, trachea midline. No JVD. CARDIOVASCULAR: Regular rate and rhythm without murmurs, gallops, or rubs. RESPIRATORY: Breath sounds equal bilaterally. No accessory muscle use. GASTROINTESTINAL: Abdomen soft, non-tender, nondistended. MUSCULOSKELETAL: No cyanosis, or edema. BACK: Nontender without obvious deformity. No CVA tenderness. A/P Assessment and Plan ====10/13/17 //Gross hematuria. Patient underwent cystoscopy with clot removal. Continues with continuous bladder irrigation as per urology. Appreciate assistance. Full discharge home tomorrow when cleared by urology. //Hypertension. Systolic blood pressure acceptable 77 y/o male with a history of HTN, prostate cancer presented to the ED with complaints of blood in the urine. //Gross hematuria, with UTI and leukocytosis UA shows trace leukocyte esterase with positive nitrates and large amount of blood WBCs 12.[address] reviewed and shows bladder filled with likely a hematoma -Continue Banks catheter, flush as needed for clots -Consult urology -Ciprofloxacin IV -Urine culture pending negative to date. //Hypertension, chronic -We'll order home medications when verified by RN DVT prophylaxis: SCDs, avoid anticoagulation due to hematuria. Discharge Planning Pending clearance from neurology. Harish Faustin MD Aug 28, 2017 14:33
[2017-08-28 16:00] VITALS: BP 143/61; PULSE 78; RESP 19; TEMP 99.9; O2SAT 97
[2017-08-28 17:21] LABS: AUTOMATED NEUTROPHIL # 9.7 TH/MM3 (1.8-7.7); BASOPHIL % 0.3 % (0.0-2.0); EOSINOPHIL % 0.4 % (0.0-4.0); HEMATOCRIT 31.7 % (39.0-51.0); HEMO FLAGS DIFF FINAL; LYMPHOCYTE # 1.1 TH/MM3 (1.0-4.8); MEAN CORPUSCULAR HEMOGLOBIN 27.9 PG (27.0-34.0); MEAN CORPUSCULAR HGB CONC 32.8 % (32.0-36.0); MONO % 8.2 % (0.0-8.0); NEUT % 82.1 % (16.0-70.0); PLATELET COUNT 170 TH/MM3 (150-450); RED BLOOD COUNT 3.73 MIL/MM3 (4.50-5.90); RED CELL DISTRIBUTION WIDTH 14.2 % (11.6-17.2); WHITE BLOOD COUNT 11.8 TH/MM3 (4.0-11.0)
[2017-08-28 20:00] VITALS: BP 111/58; PULSE 81; RESP 17; TEMP 100.9; O2SAT 95
[2017-08-28 20:06] VITALS: PULSE 84
[2017-08-29] VITALS (7 sets, daily range): BP systolic 107–169; BP diastolic 60–77; PULSE 72–83; RESP 17–22; TEMP 98.1–101; O2SAT 94–98
[2017-08-29] MEDS: CIPROFLOXACIN 400 MG PREMIX 200 ML IV SCH ×2 (03:41→17:52)
[2017-08-29] MEDS: SODIUM CHLOR 0.9% 1000 ML INJ 1,000 ML IV SCH ×3 (03:41→21:59)
[2017-08-29] MEDS: SODIUM CHLORIDE 0.9% FLUSH 10 ML FLUSH IV FLUSH SCH ×2 (08:12→22:00)
[2017-08-29 09:00] LABS: AUTOMATED NEUTROPHIL # 8.6 TH/MM3 (1.8-7.7); BASOPHIL % 0.4 % (0.0-2.0); EOSINOPHIL # 0.1 TH/MM3 (0-0.4); EOSINOPHIL % 1.2 % (0.0-4.0); HEMATOCRIT 26.6 % (39.0-51.0); HEMO FLAGS DIFF FINAL; LYMPH % 15.5 % (9.0-44.0); LYMPHOCYTE # 1.8 TH/MM3 (1.0-4.8); MEAN CELL VOLUME 85.9 FL (80.0-100.0); MEAN CORPUSCULAR HEMOGLOBIN 28.2 PG (27.0-34.0); MEAN CORPUSCULAR HGB CONC 32.8 % (32.0-36.0); MONO % 8.4 % (0.0-8.0); NEUT % 74.5 % (16.0-70.0); PLATELET COUNT 140 TH/MM3 (150-450); RED CELL DISTRIBUTION WIDTH 14.1 % (11.6-17.2); WHITE BLOOD COUNT 11.5 TH/MM3 (4.0-11.0)
[2017-08-29 09:38] LABS: BICARBONATE 24.5 MEQ/L (21.0-32.0); POTASSIUM 3.5 MEQ/L (3.5-5.1)
[2017-08-29] MEDS ORDERED: amLODIPine BESYLATE 5 MG TAB PO ONE (18:45)
--- NOTE | 2017-08-29 19:58 | RADRPT ---
EXAM DATE/TIME: 08/29/2017 19:29 [facility] COMPARISON: No previous studies available for comparison. INDICATIONS : Fever- no chest complaint. MEDICAL HISTORY : Hypertension. Aneurysm, abdominal. Carcinoma, prostatic. SURGICAL HISTORY : Abdominal aortic aneurysm repair. ENCOUNTER: Subsequent ACUITY: 3 days PAIN SCORE: 0/10 LOCATION: Bilateral chest FINDINGS: A single view of the chest demonstrates the lungs to be symmetrically aerated without evidence of mas s, infiltrate or effusion. Heart is mildly enlarged. The cardiomediastinal contours are unremarkable . Osseous structures are intact. CONCLUSION: Mild cardiomegaly. No evidence of acute process. Fabio Ignacio MD on August 29, 2017 at 19:56 Board Certified Radiologist. This report was verified electronically.
--- NOTE | 2017-08-29 21:19 | HHI.PR ---
Subjective Remarks Patient seen this morning around 11 AM. Says he is feeling all right. Denies any chest pain or shortness breath. He reports lower abdominal discomfort as before, however has not worsened. Objective Vital Signs Date Time Temp Pulse Resp B/P (MAP) Pulse Ox O2 Delivery O2 Flow Rate FiO2 08/29/17 20:00 98.1 77 22 166/77 (106) 97 08/29/17 18:43 21 08/29/17 16:00 101.0 75 17 156/72 (100) 95 08/29/17 12:00 99.8 72 17 165/72 (103) 98 08/29/17 09:44 94 21 08/29/17 08:00 99.0 83 17 169/77 (107) 95 08/29/17 04:00 99.6 79 17 132/63 (86) 95 08/29/17 00:00 98.7 76 17 107/60 (76) 95 I/O 08/28/17 08/28/17 08/28/17 08/29/17 08/29/17 08/29/17 07:00 15:00 23:00 07:00 15:00 23:00 Intake Total 200 ml 1000 ml 360 ml 1403 ml 2255 ml Output Total 1475 ml 1700 ml 2250 ml 250 ml 1150 ml 850 ml Balance -1275 ml -700 ml -1890 ml 1153 ml -1150 ml 1405 ml Intake Oral 0 ml 360 ml 240 ml 240 ml IV Total 200 ml 1000 ml 1163 ml 2015 ml Output Urine Total 1475 ml 1700 ml 2250 ml 250 ml 1150 ml 850 ml # Bowel Movements 0 0 Result Diagram: 08/29/17 0732 08/29/17 0732 Objective Remarks GENERAL: Patient sitting up in bed. awake. Urine only slightly pink today. SKIN: Warm and dry. HEAD: Normocephalic. EYES: No scleral icterus. No injection or drainage. NECK: Supple, trachea midline. No JVD. CARDIOVASCULAR: Regular rate and rhythm without murmurs, gallops, or rubs. RESPIRATORY: Breath sounds equal bilaterally. No accessory muscle use. GASTROINTESTINAL: Abdomen soft, non-tender, nondistended. MUSCULOSKELETAL: No cyanosis, or edema. BACK: Nontender without obvious deformity. No CVA tenderness. A/P Assessment and Plan ====08/29/17 //Gross hematuria. -This is much improved status post cystoscopy. Continues with Banks. Expect discharge home tomorrow when cleared by urology. //Hypertension. Systolic blood pressure elevated in the 160s. Have added amlodipine. Nursing to put patient's home medications in chart. 77 y/o male with a history of HTN, prostate cancer presented to the ED with complaints of blood in the urine. //Gross hematuria, with UTI and leukocytosis UA shows trace leukocyte esterase with positive nitrates and large amount of blood WBCs 12.[address] reviewed and shows bladder filled with likely a hematoma -Continue Banks catheter, flush as needed for clots -Consult urology -Ciprofloxacin IV -Urine culture pending negative to date. //Hypertension, chronic -Start back on amlodipine 08/29. Continue to monitor. //Anemia. Hemoglobin 9.1 down from 11.6 yesterday. Repeat level this afternoon.. DVT prophylaxis: SCDs, avoid anticoagulation due to hematuria. Discharge Planning Pending clearance from urology. expect discharge home tomorrow. Harish Faustin MD Aug 29, 2017 21:19
[2017-08-29 22:39] LABS: BACTERIA, URINE OCC /hpf; BLOOD, URINE LARGE (NEG); GLUCOSE,URINE NEG (NEG); KETONE, URINE NEG (NEG); MUCUS URINE FEW /lpf (OCC); NITRITE,URINE NEG (NEG); PH, URINE 5.5 (5.0-8.5); URINE COLOR LIGHT-YELLOW (YELLW/STRAW)
[2017-08-29 22:40] LABS: COMMENT (UR) CATH-CULTURE IND; CULTURE IF INDICATED CATH CULTURE IND
[2017-08-30] VITALS: BP 162/76; PULSE 81; RESP 22; TEMP 99.9; O2SAT 94
[2017-08-30 01:51] VITALS: PULSE 78
[2017-08-30 04:00] VITALS: BP 152/70; PULSE 67; RESP 20; TEMP 100.1; O2SAT 99
[2017-08-30] MEDS: CIPROFLOXACIN 400 MG PREMIX 200 ML IV SCH ×2 (04:03→16:08)
[2017-08-30 07:15] LABS: AUTOMATED NEUTROPHIL # 6.9 TH/MM3 (1.8-7.7); BASOPHIL % 0.3 % (0.0-2.0); EOSINOPHIL # 0.2 TH/MM3 (0-0.4); EOSINOPHIL % 2.6 % (0.0-4.0); HEMATOCRIT 24.4 % (39.0-51.0); HEMO FLAGS DIFF FINAL; LYMPH % 15.5 % (9.0-44.0); LYMPHOCYTE # 1.5 TH/MM3 (1.0-4.8); MEAN CELL VOLUME 85.1 FL (80.0-100.0); MEAN CORPUSCULAR HEMOGLOBIN 28.9 PG (27.0-34.0); MEAN CORPUSCULAR HGB CONC 33.9 % (32.0-36.0); MONO % 8.8 % (0.0-8.0); NEUT % 72.8 % (16.0-70.0); PLATELET COUNT 131 TH/MM3 (150-450); RED BLOOD COUNT 2.87 MIL/MM3 (4.50-5.90); RED CELL DISTRIBUTION WIDTH 14.2 % (11.6-17.2); WHITE BLOOD COUNT 9.4 TH/MM3 (4.0-11.0)
[2017-08-30 07:24] LABS: BICARBONATE 23.9 MEQ/L (21.0-32.0); MAGNESIUM 2.1 MG/DL (1.5-2.5); POTASSIUM 3.6 MEQ/L (3.5-5.1)
[2017-08-30 08:00] VITALS: BP 132/69; PULSE 73; RESP 18; TEMP 99.3; O2SAT 96
[2017-08-30] MEDS: SODIUM CHLORIDE 0.9% FLUSH 10 ML FLUSH IV FLUSH SCH (08:18)
[2017-08-30] MEDS ORDERED: amLODIPine BESYLATE 5 MG TAB PO SCH (09:00)
[2017-08-30] MEDS ORDERED: CADU10TA2 PO (11:26)
[2017-08-30] MEDS ORDERED: LOSA100T PO (11:26)
[2017-08-30 12:00] VITALS: BP 140/66; PULSE 76; RESP 17; TEMP 100.6; O2SAT 96
--- NOTE | 2017-08-30 14:16 | HHI.PR ---
Subjective Patient symptoms today Stop CBI . If Urine remains clear, may discharge home with henriquez in place and Urology follow-up in clinic this week Objective Result Diagram: 08/30/1707 08/30/17606 Assessment and Plan Problem List: (1) History of prostate cancer ICD Code: Z85.46 - Personal history of malignant neoplasm of prostate Status: Acute (2) Gross hematuria ICD Code: R31.0 - Gross hematuria Status: Acute Oli Rod MD Aug 30, 2017 14:16
[2017-08-30 16:00] VITALS: BP 168/75; PULSE 75; RESP 17; TEMP 100.3; O2SAT 95
[2017-08-30] MEDS ORDERED: CIPR-9 PO (18:08)
[2017-08-30] MEDS ORDERED: CIPROFLOXACIN 500 MG TAB PO ONE (18:15)
--- NOTE | 2017-08-30 18:16 | HHI.PR ---
Subjective Remarks Patient seen this morning around 11 AM. Says he is feeling well. Denies any chest pain or shortness of breath. Denies any pain. He would like to go home. Patient has had some fevers. He denies feeling feverish or having chills. Objective Vital Signs Date Time Temp Pulse Resp B/P (MAP) Pulse Ox O2 Delivery O2 Flow Rate FiO2 08/30/17 16:00 100.3 75 17 168/75 (106) 95 08/30/17 12:00 100.6 76 17 140/66 (90) 96 08/30/17 08:00 99.3 73 18 132/69 (90) 96 08/30/17 04:00 100.1 67 20 152/70 (97) 99 08/30/17 01:51 78 08/30/17 00:00 99.9 81 22 162/76 (104) 94 08/29/17 20:00 98.1 77 22 166/77 (106) 97 08/29/17 18:43 21 I/O 08/29/17 08/29/17 08/29/17 08/30/17 08/30/17 08/30/17 07:00 15:00 23:00 07:00 15:00 23:00 Intake Total 1403 ml 2455 ml 520 ml 700 ml 2354 ml Output Total 250 ml 1150 ml 850 ml 4850 ml 3050 ml Balance 1153 ml -1150 ml 1605 ml -4330 ml 700 ml -696 ml Intake Oral 240 ml 240 ml 320 ml IV Total 1163 ml 2215 ml 200 ml 700 ml 2354 ml Output Urine Total 250 ml 1150 ml 850 ml 4850 ml 3050 ml # Bowel Movements 0 0 Result Diagram: 08/30/17 0607 08/30/17606 Objective Remarks GENERAL: Patient sitting up in bed. awake. Urine very slightly pink today. Appears comfortable. SKIN: Warm and dry. HEAD: Normocephalic. EYES: No scleral icterus. No injection or drainage. NECK: Supple, trachea midline. No JVD. CARDIOVASCULAR: Regular rate and rhythm without murmurs, gallops, or rubs. RESPIRATORY: Breath sounds equal bilaterally. No accessory muscle use. GASTROINTESTINAL: Abdomen soft, non-tender, nondistended. MUSCULOSKELETAL: No cyanosis, or edema. BACK: Nontender without obvious deformity. No CVA tenderness. A/P Assessment and Plan ====08/30/17 //Gross hematuria. -This is much improved status post cystoscopy. Continues with Banks. Expect discharge home tomorrow when cleared by urology. //Hypertension. Systolic blood pressure elevated in the 160s. Have added amlodipine. Nursing to put patient's home medications in chart. 77 y/o male with a history of HTN, prostate cancer presented to the ED with complaints of blood in the urine. //Gross hematuria, with UTI and leukocytosis UA shows trace leukocyte esterase with positive nitrates and large amount of blood WBCs 12.[address] reviewed and shows bladder filled with likely a hematoma -Continue Banks catheter, flush as needed for clots -Consult urology -Ciprofloxacin IV -Urine culture pending negative to date. = Resolved after cystoscopy and bladder irrigation. Continue with Banks. Follow-up with urology as outpatient in 1 week. //Hypertension, chronic -Start back on amlodipine 08/29. Continue to monitor. = 08/30 systolic blood pressure. Continue on home Caduet. Due to urinary issues, risk of renal compromise, possible UTI, will hold off on ARB for now. //Possible UTI. Patient has had fevers up to 101 on 08/29, 100.6 today 08/30. Patient did have a leukocytosis on admission 12.5, however this resolved, 9.4 today. Due to suspicion of possible UTI, patient started on ciprofloxacin twice daily at discharge. Close follow-up with primary care recommended. //Anemia. Hemoglobin 11.6 on admission, slowly down trended a 8.3. Hematuria resolved, expect to improve. Follow with primary care. DVT prophylaxis: SCDs, avoid anticoagulation due to hematuria. Discharge Planning discharge home. Harish Faustin MD Aug 30, 2017 18:16
--- NOTE | 2017-08-30 18:25 | HHI.DS ---
Discharge Summary Admission Date Aug 27, 2017 at 03:49 Discharge Date: Aug 30, 2017 Admitting Diagnosis gross hematuria. History of prostate cancer. (1) Gross hematuria ICD Code: R31.0 - Gross hematuria Status: Acute (2) History of prostate cancer ICD Code: Z85.46 - Personal history of malignant neoplasm of prostate Status: Acute Procedures cystoscopy Brief History - From Admission Written by Leann Callahan, acting as scribe for [George] on 08/27/17 at 05:14. 77 y/o male with a history of HTN, prostate cancer presented to the ED with complaints of blood in the urine. He states the blood in his urine started yesterday morning with associated pain in his bladder. He describes the pain in his bladder as pressure-like. He denies any chest pain, shortness of breath , fever or chills. Banks was inserted and is draining bright red blood with clots. Urologist: Dr. Shields CBC/BMP: 08/30/17 0607 08/30/17 0607 Significant Findings Laboratory Tests Test 08/28/17 06:23 08/28/17 16:47 08/29/17 07:32 08/29/17 22:05 Red Blood Count 3.20 MIL/MM3 (4.50-5.90) 3.73 MIL/MM3 (4.50-5.90) 3.10 MIL/MM3 (4.50-5.90) Hemoglobin 9.1 GM/DL (13.0-17.0) 10.4 GM/DL (13.0-17.0) 8.7 GM/DL (13.0-17.0) Hematocrit 27.2 % (39.0-51.0) 31.7 % (39.0-51.0) 26.6 % (39.0-51.0) Platelet Count 143 TH/MM3 (150-450) 140 TH/MM3 (150-450) Neutrophils (%) (Auto) 74.4 % (16.0-70.0) 82.1 % (16.0-70.0) 74.5 % (16.0-70.0) Monocytes (%) (Auto) 10.4 % (0.0-8.0) 8.2 % (0.0-8.0) 8.4 % (0.0-8.0) Chloride Level 109 MEQ/L (98-107) 108 MEQ/L (98-107) Estimat Glomerular Filtration Rate 67 ML/MIN (>89) 58 ML/MIN (>89) White Blood Count 11.8 TH/MM3 (4.0-11.0) 11.5 TH/MM3 (4.0-11.0) Neutrophils # (Auto) 9.7 TH/MM3 (1.8-7.7) 8.6 TH/MM3 (1.8-7.7) Monocytes # (Auto) 1.0 TH/MM3 (0-0.9) 1.0 TH/MM3 (0-0.9) Albumin 2.7 GM/DL (3.4-5.0) Calcium Level 8.3 MG/DL (8.5-10.1) Urine Occult Blood LARGE (NEG) Urine Leukocyte Esterase MOD (NEG) Urine WBC 18 /hpf (0-5) Urine Bacteria OCC /hpf (NONE) Urine Mucus FEW /lpf (OCC) Test 08/30/17 06:07 Red Blood Count 2.87 MIL/MM3 (4.50-5.90) Hemoglobin 8.3 GM/DL (13.0-17.0) Hematocrit 24.4 % (39.0-51.0) Platelet Count 131 TH/MM3 (150-450) Neutrophils (%) (Auto) 72.8 % (16.0-70.0) Monocytes (%) (Auto) 8.8 % (0.0-8.0) Albumin 2.5 GM/DL (3.4-5.0) Calcium Level 8.2 MG/DL (8.5-10.1) Chloride Level 108 MEQ/L (98-107) Estimat Glomerular Filtration Rate 75 ML/MIN (>89) Imaging Last Impressions Chest X-Ray 08/29/17 0000 Signed Impressions: Service Date/Time: Tuesday, August 29, 2017 19:29 - CONCLUSION: Mild cardiomegaly. No evidence of acute process. Fabio Ignacio MD Abdomen/Pelvis CT 08/27/17 0115 Signed Impressions: Service Date/Time: August 01:56 - CONCLUSION: Bladder filled with likely hematoma. Nonspecific soft tissue nodules in the retroperitoneum Incompletely seen sclerotic process involving the proximal right femoral shaft. Previously treated aortoiliac aneurysm. Tyrone Ni MD Hospital Course Patient admitted with gross hematuria. Abdominal pain. CT abdomen showed bladder hematoma. Banks was placed with continuous irrigation. Urology was consult to, patient underwent cystoscopy with removal of hematoma. Patient's crit and was 1.8 on admission, normalized on hospital day one. Hematuria improved with continuous bladder irrigation. Patient was discharged with Banks to follow-up with urology in 1 week. Patient did experience fevers up to 101 on 08/29, 100.6 on 08/30. White blood cell count was 12.5 on admission 08/27, however resolved on hospital day one. Repeat urinalysis 08/29 with hematuria again, 18 white blood cells. Chest x-ray with no acute findings. PSA within normal limits. Due to the possibility of urinary tract infection, patient was started on ciprofloxacin to continue at discharge. For problem-based summary from most recent progress note, please see below. ====08/30/17 //Gross hematuria. -This is much improved status post cystoscopy. Continues with Banks. Expect discharge home tomorrow when cleared by urology. //Hypertension. Systolic blood pressure elevated in the 160s. Have added amlodipine. Nursing to put patient's home medications in chart. 77 y/o male with a history of HTN, prostate cancer presented to the ED with complaints of blood in the urine. //Gross hematuria, with UTI and leukocytosis UA shows trace leukocyte esterase with positive nitrates and large amount of blood WBCs 12.[address] reviewed and shows bladder filled with likely a hematoma -Continue Banks catheter, flush as needed for clots -Consult urology -Ciprofloxacin IV -Urine culture pending negative to date. = Resolved after cystoscopy and bladder irrigation. Continue with Banks. Follow-up with urology as outpatient in 1 week. //Hypertension, chronic -Start back on amlodipine 08/29. Continue to monitor. = 08/30 systolic blood pressure. Continue on home Caduet. Due to urinary issues, risk of renal compromise, possible UTI, will hold off on ARB for now. //Possible UTI. Patient has had fevers up to 101 on 08/29, 100.6 today 08/30. Patient did have a leukocytosis on admission 12.5, however this resolved, 9.4 today. Due to suspicion of possible UTI, patient started on ciprofloxacin twice daily at discharge. Close follow-up with primary care recommended. //Anemia. Hemoglobin 11.6 on admission, slowly down trended a 8.3. Hematuria resolved, expect to improve. Follow with primary care. DVT prophylaxis: SCDs, avoid anticoagulation due to hematuria. Pt Condition on Discharge: Good Discharge Disposition: Discharge Home Discharge Time: > 30 minutes Discharge Instructions DIET: Follow Instructions for: As Tolerated, No Restrictions Activities you can perform: Regular-No Restrictions Follow up Referrals: PCP Follow-up - 1 Week with Cristy Carlisle MD Urology - 1 Week with Yg Martinez DO New Medications: Ciprofloxacin (Cipro) 500 Mg Tab 500 MG PO Q12HR for Infection for 10 Days, TAB Continued Medications: Amlodipine-Atorvastatin (Caduet) 10-20 Mg Tab 1 TAB PO DAILY for Blood Pressure Management, #30 TAB 0 Refills Discontinued Medications: Losartan (Losartan) 100 Mg Tab 100 MG PO DAILY for Blood Pressure Management, #30 TAB 0 Refills Harish Faustin MD Aug 30, 2017 18:25
[2017-08-31] MEDS ORDERED: CIPROFLOXACIN 500 MG TAB PO SCH (09:00)
== END 2017-08-30 20:33 | disposition home or self-care (01) | DRG 669 ==
LOC: NEPE 21:55 → NEDA 08-27 03:49 → NEPGCP 08-27 04:49 → N07B 08-27 18:58
PROVIDERS: ADMIT Hospitalist; ATTEND Hospitalist
PROC: 0T5B8ZZ Destruction of Bladder, Via Natural or Artificial Opening Endoscopic (ICD-10-PCS; 2017-08-28)
PROC: 0TCB8ZZ Extirpation of Matter from Bladder, Via Natural or Artificial Opening Endoscopic (ICD-10-PCS; 2017-08-28)
PROC: 0TBB8ZZ Excision of Bladder, Via Natural or Artificial Opening Endoscopic (ICD-10-PCS; principal; 2017-08-28 07:20)
DX: D49.4 Neoplasm of unspecified behavior of bladder (principal); N39.0 Urinary tract infection, site not specified; D64.9 Anemia, unspecified; C61 Malignant neoplasm of prostate; I10 Essential (primary) hypertension; E78.00 Pure hypercholesterolemia, unspecified; R31.0 Gross hematuria; Z19.1 Hormone sensitive malignancy status
CPT/HCPCS: 51702; 71010; 74177; 80048; 80053; 80069; 81001; 83605; 83690; 83735; 84153; 85025; 85610; 85730; 86850; 86900; 86901; 87086; 88307; 93005; J0690; J0744; J2270; J2370; J2405; J2710; J3010; J7030; J7120; Q9967